=== PATIENT | female | born 1975 | race Caucasian/White ===

== ENCOUNTER 2019-02-22 00:35 | Emergency (ER) | payer MEDICAID, SELFPAY | END 2019-02-22 03:46 | disposition home or self-care (01) | PROVIDERS: Emergency Provider Physician Assistant; Family Provider Family Medicine; Visit Provider Physician Assistant | DX: M54.12 Radiculopathy, cervical region (principal); Z88.0 Allergy status to penicillin | CPT/HCPCS: 96372; 99284; J2270; J2405 ==

== ENCOUNTER 2019-03-03 06:00 | Outpatient (RCR) | payer MEDICAID, SELFPAY | END 2019-03-27 23:59 | disposition home or self-care (01) | LOC: MPT 06:00 | PROVIDERS: Family Provider Family Medicine; PCP Family Medicine; Referring Provider Family Medicine; Visit Provider Family Medicine | DX: G89.29 Other chronic pain (principal); M54.2 Cervicalgia | CPT/HCPCS: 97110; 97140; 97161; 97530 ==

== ENCOUNTER → 2019-03-16 13:49 | Outpatient (BNVA) | payer MEDICAID, SELFPAY | PROVIDERS: Family Provider Family Medicine; PCP Family Medicine; Visit Provider Specialist | DX: G40.909 Epilepsy, unspecified, not intractable, without status epilepticus (principal); G43.711 Chronic migraine without aura, intractable, with status migrainosus; M54.5 Low back pain | CPT/HCPCS: 64615; 99213; J0585 ==

== ENCOUNTER 2019-03-19 09:17 | Outpatient (CLI) | payer MEDICAID, SELFPAY ==
--- NOTE | 2019-03-19 09:30 | MR_ITS ---
WS: [id number] MRI CERVICAL SPINE HISTORY: Neck pain, arm pain, numbness, weakness and tingling COMPARISON: Cervical spine CT 09/05/2017 Straightening and slight reversal the normal cervical lordosis centered at C5-6. Signal within the cervical cord is normal. Visualized posterior fossa is unremarkable. Craniocervical junction, C1 and C2 relationship, odontoid process and soft tissues are normal. Congen itally, mild, small thecal sac from C3-4 to C6-7. C2-C3: Normal. C3-C4: Small vertebral body osteophytes extend into the foramen and mild annular disc bulging. No sig nificant stenosis but there is narrowing of the central canal which is probably congenital. C4-C5: Diffuse osteophytic ridging and annular disc bulging. Disc osteophyte disease contributing to mild central and LEFT foraminal stenosis. More moderate stenosis at the RIGHT foramen. C5-C6: Marked osteophytic ridging and disc bulging. Central and LEFT paracentral disc protrusions are suspected. Disc osteophyte complexes and the foramen. Complete effacement of CSF. Severe central and bilateral foraminal stenosis. C6-C7: Osteophytic ridging and annular disc bulging. Moderate-sized disc osteophyte complex in the RI GHT foramen. Near complete effacement of CSF. Posterior displacement of the proximal nerve roots on t he RIGHT. Moderate central and bilateral foraminal stenosis. C7-T1: Normal. Paraspinal soft tissue are normal. MR/MR cervical spin wo con* [id number] IMPRESSION: 1. Osteophyte, disc disease and mild congenitally small thecal sac contribute to multilevel areas of stenosis. 2. Severe central and bilateral foraminal stenosis at C5-6 due to disc osteoph yte disease. 3. Moderate central and bilateral foraminal stenosis at C6-7 due to disc osteo phyte disease. 4. Moderate RIGHT foraminal stenosis at C4-5 due to disc osteophyte disease wi th mild central and LEFT foraminal stenosis. 5. Mild progression of stenosis since the CT of 09/05/2017.
== END 2019-03-19 09:18 | disposition home or self-care (01) ==
LOC: RADSHAW 09:20
PROVIDERS: Family Provider Family Medicine; PCP Family Medicine; Visit Provider Family Medicine
DX: M54.12 Radiculopathy, cervical region (principal); M48.02 Spinal stenosis, cervical region; M54.2 Cervicalgia; R20.0 Anesthesia of skin; M25.78 Osteophyte, vertebrae
CPT/HCPCS: 72141

== ENCOUNTER 2019-03-28 06:00 | Outpatient (RCR) | payer MEDICAID, SELFPAY | END 2019-04-25 23:59 | disposition home or self-care (01) | LOC: MPT 06:00 | PROVIDERS: Family Provider Family Medicine; PCP Family Medicine; Referring Provider Family Medicine; Visit Provider Family Medicine | DX: G89.29 Other chronic pain (principal); M54.2 Cervicalgia | CPT/HCPCS: 97110; 97140; 97530 ==

== ENCOUNTER → 2019-05-11 16:30 | Outpatient (BNVA) | payer MEDICAID, SELFPAY | PROVIDERS: Family Provider Family Medicine; PCP Family Medicine; Visit Provider Family Medicine | DX: R50.9 Fever, unspecified (principal); J20.8 Acute bronchitis due to other specified organisms | CPT/HCPCS: 87400 ==

== ENCOUNTER → 2019-06-18 15:19 | Outpatient (BNVA) | payer MEDICAID, SELFPAY | PROVIDERS: Family Provider Family Medicine; PCP Family Medicine; Visit Provider Specialist | DX: G43.711 Chronic migraine without aura, intractable, with status migrainosus (principal); M48.02 Spinal stenosis, cervical region; G99.2 Myelopathy in diseases classified elsewhere | CPT/HCPCS: 64615; 99213; J0585 ==

== ENCOUNTER → 2019-09-10 14:15 | Outpatient (BNVA) | payer MEDICAID, SELFPAY | PROVIDERS: Family Provider Family Medicine; PCP Family Medicine; Visit Provider Specialist | DX: G43.711 Chronic migraine without aura, intractable, with status migrainosus (principal); F44.5 Conversion disorder with seizures or convulsions | CPT/HCPCS: 64615; 99213; J0585 ==

== ENCOUNTER → 2021-02-07 11:55 | Outpatient (BNVA) | payer MEDICAID, SELFPAY | PROVIDERS: Family Provider Family Medicine; PCP Family Medicine; Visit Provider Family Medicine | DX: Z13.6 Encounter for screening for cardiovascular disorders (principal); R73.03 Prediabetes | CPT/HCPCS: 80053; 80061; 83036 ==

== ENCOUNTER → 2021-06-07 14:05 | Outpatient (BNVA) | payer MEDICAID, SELFPAY | PROVIDERS: Family Provider Family Medicine; PCP Family Medicine; Visit Provider Family Medicine | DX: E78.5 Hyperlipidemia, unspecified (principal); R10.13 Epigastric pain; R73.03 Prediabetes | CPT/HCPCS: 80053; 80061; 83036; 83690; 85025 ==

== ENCOUNTER → 2021-07-10 14:45 | Outpatient (BNVA) | payer MEDICAID, SELFPAY | PROVIDERS: Family Provider Family Medicine; PCP Family Medicine; Referring Provider Family Medicine; Visit Provider Internal Medicine | DX: D50.9 Iron deficiency anemia, unspecified (principal); D64.9 Anemia, unspecified; R10.13 Epigastric pain; K90.0 Celiac disease; R73.03 Prediabetes; F44.5 Conversion disorder with seizures or convulsions; M54.12 Radiculopathy, cervical region; G43.711 Chronic migraine without aura, intractable, with status migrainosus; M50.020 Cervical disc disorder with myelopathy, mid-cervical region, unspecified level; M48.02 Spinal stenosis, cervical region | CPT/HCPCS: 82607; 83550; 84443; 85025 ==

== ENCOUNTER → 2021-08-09 10:52 | Day surgery (SDC) | payer MEDICAID, SELFPAY ==
[2021-08-09 11:12] VITALS: BP 119/73; PULSE 73; RESP 18; TEMP 36.4; O2SAT 98
[2021-08-09] MEDS: iron sucrose 200 MG in sodium chloride 0.9% (100 ml) 100 ML 220 MG IV (11:20)
== END ==
PROVIDERS: PCP Family Medicine; Visit Provider Internal Medicine
DX: K92.1 Melena (principal)
CPT/HCPCS: 96365; J1756

== ENCOUNTER 2021-08-14 06:33 | Day surgery (SDC) | payer MEDICAID, SELFPAY ==
[2021-08-11 12:55] VITALS: BMI 40.5
[2021-08-14 07:08] VITALS: BP 123/80; PULSE 99; RESP 18; TEMP 36.6; O2SAT 96
[2021-08-14] MEDS: sodium chloride 0.9% 1,000 ML 30 ML IV (07:32)
[2021-08-14 07:35] LABS: OR HCG Qualitative Urine Negative (Negative)
[2021-08-14] MEDS: ondansetron 2 mg/ML SDV 2 mL 4 MG IVP (07:46)
--- NOTE | 2021-08-14 07:49 | ANES.PREANE2 ---
Pre-Anesthetic Assessment Height/Weight: Height 1.64 m Weight 108.862 kg Temp Pulse Resp BP Pulse Ox 98 F 99 18 123/80 96 08/14/21 07:08 08/14/21 07:08 08/14/21 07:08 08/14/21 07:08 08/14/21 07:08 Preop Diagnosis: Fe def anemia and hematochezia Operation Date: 08/14/21 11:00 Proposed Procedures p EGD and colonoscopy [id number],K92.1(Not Applicable) - Giovanni Coburn MD s Colonoscopy(Not Applicable) - Giovanni Coburn MD Familial anesthetic complications: No family hx of complications, per patient she once had a high spinal during c section Was Beta Adam taken within 24 hours: N/A Was Clonidine taken within 24 hours: N/A Last intake: Intake Last Liquid Date 08/13/21 Last Liquid Time 21:30 Last Solid Date 08/12/21 Last Solid Time 18:00 Social No alcohol and No tobacco Exam alert, oriented x 3, clear to auscultation bilaterally and regular rate & rhythm Airway Submandibular: within normal limits Cervical ROM: within normal limits Mallampati: Class II Dentition: full Pulmonary Exertional Dyspnea Patient has sensation of anterior neck pressure/choking when lying flat on back. Able to breath on back flat, but feels a choking sensation. Falls asleep on side, awakes on back without SOB/difficulty breathing but will roll back to side due to sensation of choking. Has never chocked in supine position. Denies hx of thyroid goiter/neck mass. Examination of neck reveals normal trachea alignment and absence of abnormalities in soft tissue and thyroid gland. Denies RENETTA CV/HEM Anemia JUAREZ, will have chest pain on occasion w/ exertion, denies hx of CAD. 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 We discussed spectrum of MAC anesthesia including conversion to general as well as possibility of recall of intraoperative stimuli including discomfort/pain. Patient agrees to proceed with MAC. Patient request to be sat up prior to emergence from anesthesia due to discomfort when lying on back Risk of > 500 ml blood loss (7ml/kg in children): No Medications/Allergies Home Medications Medication Instructions Recorded Confirmed Last Taken Type pantoprazole 40 mg tablet,delayed 40 mg PO BID 30 Days #60 tab 06/07/21 08/11/21 08/08/21 Rx release sucralfate 1 gram tablet (Carafate) 1 g PO BID 30 Days #60 tab 06/07/21 08/11/21 08/08/21 Rx Allergies Allergy/AdvReac Type Severity Reaction Status Date / Time palm oil Allergy Mild blisters Verified 08/09/21 10:48 Penicillins Allergy Mild rash Verified 08/09/21 10:48 cashew nut AdvReac Mild blisters Verified 08/09/21 10:48 in mouth nut - unspecified AdvReac Mild blisters Verified 08/09/21 10:48 in mouth Current Medications Generic Name Dose Route Start Last Admin Trade Name Freq PRN Reason Stop Dose Admin Sodium Chloride 1,000 mls @ 30 mls/hr 08/14/21 07:00 08/14/21 07:32 Sodium Chloride 0.9% IV 30 mls/hr .Q24H RHONDA Administration Ondansetron HCl 4 mg 08/14/21 06:48 08/14/21 07:46 Ondansetron 2 Mg/Ml Sdv 2 Ml IVP 4 mg Q15M PRN Administration Nausea/Vomiting PACU PHASE II [facility] Anesthesia Medical History Cervical disc disorder with myelopathy of mid-cervical region Stenosis of cervical spine with myelopathy Surgical History History of 3 sections History of tonsillectomy and adenoidectomy Family History Family/Other CAD (coronary artery disease) Mother Diabetes Sister Diabetes Social History Smoking and tobacco status: never smoked Alcohol intake: never Household members: children Marital status: Current occupational status: disabled History of recent travel: No Female Reproductive History Spontaneous abortions: No Data Anesthesia Cardiac Studies: No Data to Display
--- NOTE | 2021-08-14 08:07 | P.HP_ITS ---
Same Day Surgery H&P Indication for Procedure/HPI DATE OF PROCEDURE: August 14, 2021 CHIEF COMPLAINT/INDICATIONFOR SURGICAL PROCEDURE: Iron deficiency anemia PREOP DIAGNOSIS: Fe def anemia and hematochezia PLANNED PROCEDURE: Operation Date: 08/14/21 11:00 Proposed Procedures p EGD and colonoscopy [id number],K92.1(Not Applicable) - Giovanni Coburn MD s Colonoscopy(Not Applicable) - Giovanni Coburn MD Medications/Allergies* Allergies/Adverse Reactions Allergy/AdvReac Type Severity Reaction Status Date / Time palm oil Allergy Mild blisters Verified 08/09/21 10:48 Penicillins Allergy Mild rash Verified 08/09/21 10:48 cashew nut AdvReac Mild blisters Verified 08/09/21 10:48 in mouth nut - unspecified AdvReac Mild blisters Verified 08/09/21 10:48 in mouth Current Medications: Generic Name Dose Route Start Last Admin Trade Name Freq PRN Reason Stop Dose Admin Sodium Chloride 1,000 mls @ 30 mls/hr 08/14/21 07:00 08/14/21 07:32 Sodium Chloride 0.9% IV 30 mls/hr .Q24H RHONDA Administration Ondansetron HCl 4 mg 08/14/21 06:48 08/14/21 07:46 Ondansetron 2 Mg/Ml Sdv 2 Ml IVP 4 mg Q15M PRN Administration Nausea/Vomiting PACU PHASE II Pertinent History/Comorbid Conditions* Medical History (Updated 07/27/21 @ 15:47 by Giovanni Coburn MD) Cervical disc disorder with myelopathy of mid-cervical region Stenosis of cervical spine with myelopathy Surgical History (Updated 04/27/19 @ 13:02 by Shyla Lawson MD) History of 3 sections History of tonsillectomy and adenoidectomy Family History (Updated 04/23/19 @ 09:16 by Nata France LPN) Diabetes Mother Sister CAD (coronary artery disease) Family/Other Social History Smoking and tobacco status: never smoked Alcohol intake: never Household members: children Marital status: Current occupational status: disabled History of recent travel: No Pertinent Exam Findings alert, oriented x 3, clear to auscultation bilaterally, regular rate & rhythm, operative site marked and procedure specific exam findings Recommendations Surgery/Procedure today Coding Level of Care Code Acute Rotary Cutter Feeder for Chg Heraclio
[2021-08-14 09:13] VITALS: BP 121/65; PULSE 75; RESP 18; TEMP 36.1; O2SAT 95
--- NOTE | 2021-08-14 09:16 | ANE.PACU2 ---
Documented by User: Tim Rivera CRNA 08/14/21 09:17 Inpatient post-anesthesia follow up: Airway intact: Yes Vital signs: Temperature 98 F Pulse Rate 99 Respiratory Rate 18 Blood Pressure 123/80 Pulse Oximetry 96 Oxygen Delivery Me thod Room Air Oxygen Flow Rate Fraction of Inspir ed Oxygen Hydration adequate: Yes Nausea and vomiting: No Pain level: 1 Mental status: Baseline
[2021-08-14 09:23] VITALS: BP 124/76; PULSE 81; RESP 18; O2SAT 96
== END 2021-08-14 10:02 | disposition home or self-care (01) ==
PROVIDERS: Anesthesiology; PCP Family Medicine; Visit Provider Internal Medicine
PROC: 0DJ08ZZ Inspection of Upper Intestinal Tract, Via Natural or Artificial Opening Endoscopic (ICD-10-PCS; CPT 43235; principal; 2021-08-14 11:00)
PROC: 0DJD8ZZ Inspection of Lower Intestinal Tract, Via Natural or Artificial Opening Endoscopic (ICD-10-PCS; CPT 45378; 2021-08-14 11:00)
DX: K92.1 Melena (principal); K21.9 Gastro-esophageal reflux disease without esophagitis; Z87.11 Personal history of peptic ulcer disease; E66.01 Morbid (severe) obesity due to excess calories; Z68.41 Body mass index [BMI] 40.0-44.9, adult
CPT/HCPCS: 43239; 45378; 84703; 88305; J2405; J2704; J7030

== ENCOUNTER → 2021-08-16 11:24 | Day surgery (SDC) | payer MEDICAID, SELFPAY ==
[2021-08-16] MEDS: iron sucrose 200 MG in sodium chloride 0.9% (100 ml) 100 ML 220 MG IV (11:42)
[2021-08-16 11:48] VITALS: BP 102/64; PULSE 78; RESP 18; TEMP 36.6; O2SAT 96
== END ==
PROVIDERS: PCP Family Medicine; Visit Provider Internal Medicine
DX: M54.2 Cervicalgia (principal); G89.29 Other chronic pain
CPT/HCPCS: 96365; J1756

== ENCOUNTER → 2021-08-23 11:04 | Day surgery (SDC) | payer MEDICAID, SELFPAY ==
[2021-08-23] MEDS: iron sucrose 200 MG in sodium chloride 0.9% (100 ml) 100 ML 220 MG IV (11:29)
[2021-08-23 11:35] VITALS: BP 141/61; PULSE 78; RESP 18; TEMP 36.4; O2SAT 99
== END ==
PROVIDERS: PCP Family Medicine; Visit Provider Internal Medicine
DX: K92.1 Melena (principal)
CPT/HCPCS: 96365; J1756

== ENCOUNTER → 2021-08-30 11:36 | Day surgery (SDC) | payer MEDICAID, SELFPAY ==
[2021-08-30] MEDS: iron sucrose 200 MG in sodium chloride 0.9% (100 ml) 100 ML 220 MG IV (11:57)
[2021-08-30 11:58] VITALS: BP 130/68; PULSE 83; RESP 18; TEMP 35.7; O2SAT 98
== END ==
PROVIDERS: PCP Family Medicine; Visit Provider Internal Medicine
DX: K92.1 Melena (principal)
CPT/HCPCS: 96365; J1756

== ENCOUNTER → 2021-09-06 11:17 | Day surgery (SDC) | payer MEDICAID, SELFPAY ==
[2021-09-06 11:31] VITALS: BP 116/59; PULSE 67; RESP 18; TEMP 36; O2SAT 98
[2021-09-06] MEDS: iron sucrose 200 MG in sodium chloride 0.9% (100 ml) 100 ML 220 MG IV (11:43)
== END ==
PROVIDERS: PCP Family Medicine; Visit Provider Internal Medicine
DX: K92.1 Melena (principal)
CPT/HCPCS: 96365; J1756

== ENCOUNTER 2021-11-01 15:11 | Outpatient (CLI) | payer MEDICAID, SELFPAY ==
[2021-11-01 16:22] LABS: Basophils # 0.1 10^3/uL (0.0-0.1); Basophils % 0.7 %; Eosinophils # 0.2 10^3/uL (0.0-0.8); Eosinophils % 2.1 %; Hematocrit 42.3 % (37.0-47.0); Hemoglobin 13.1 g/dL (11.5-15.3); Lymphocytes % 23.7 %; Mean Corpuscular Hemoglobin 25.4 pg (28.0-34.0); Mean Platelet Volume 9.2 fL (7.4-10.4); Monocytes # 0.8 10^3/uL (0.2-0.9); Monocytes % 9.4 %; Neutrophils # 5.24 10^3/uL (1.8-7.7); Neutrophils % 63.7 %; Nucleated Red Blood Cells % 0 %; Platelet Count 383 10^3/cmm (130-400); Red Blood Count 5.16 10^6/uL (4.1-5.3); Red Cell Distribution Width 18.6 % (12.1-15.1); White Blood Count 8.2 10^3/uL (4.0-10.0)
[2021-11-01 16:56] LABS: Iron 57 ug/dL (37-145); Percent Saturation 16.8 % (20-50); Total Iron Binding Capacity 338 mcg/dl; Unsaturated Iron Binding 281 ug/dL (112-347)
[2021-11-03 15:42] LABS: Immunoglobulin A 570 mg/dL (47-310)
[2021-11-04 06:27] LABS: Gliadin Ab.IgA <1.0 U/mL; Gliadin Ab.IgG <1.0 U/mL
[2021-11-04 06:42] LABS: Tissue Transglutaminase IgA Ab <1.0 U/mL; Tissue transglutaminase Ab.IgG <1.0 U/mL
== END 2021-11-01 15:12 | disposition home or self-care (01) ==
LOC: LAB 15:13
PROVIDERS: PCP Family Medicine; Visit Provider Internal Medicine
DX: D50.9 Iron deficiency anemia, unspecified (principal)
CPT/HCPCS: 82784; 83516; 83540; 83550; 85025

== ENCOUNTER → 2022-03-01 10:48 | Outpatient (BNVA) | payer MEDICAID, SELFPAY | PROVIDERS: PCP Family Medicine; Visit Provider Family Medicine | DX: E11.9 Type 2 diabetes mellitus without complications (principal); E78.00 Pure hypercholesterolemia, unspecified; D50.9 Iron deficiency anemia, unspecified; N92.4 Excessive bleeding in the premenopausal period; K90.0 Celiac disease; Z68.38 Body mass index [BMI] 38.0-38.9, adult | CPT/HCPCS: 80053; 80061; 83036; 85025 ==

== ENCOUNTER → 2022-08-22 15:00 | Outpatient (BNVA) | payer MEDICAID, SELFPAY | PROVIDERS: PCP Family Medicine; Visit Provider Family Medicine | DX: E11.9 Type 2 diabetes mellitus without complications (principal); E78.00 Pure hypercholesterolemia, unspecified; D50.9 Iron deficiency anemia, unspecified | CPT/HCPCS: 80053; 80061; 83036; 83540; 85025 ==

== ENCOUNTER 2022-10-29 06:22 | Emergency (ER) | payer MEDICAID, SELFPAY ==
[2022-10-29 06:38] VITALS: BP 148/69; PULSE 74; RESP 18; TEMP 36.7; O2SAT 98; BMI 37.5
[2022-10-29] MEDS: orphenadrine 30 mg/mL Inj 2 mL 60 MG IVP (07:02)
[2022-10-29] MEDS: dexamethasone 10 mg/mL INJ IVP (07:02)
[2022-10-29] MEDS: ketorolac 30 mg/mL INJ IVP (07:02)
--- NOTE | 2022-10-29 07:03 | W.ED.BACK ---
HPI - Back Pain/Injury General: Chief Complaint: Back Pain/Injury Stated Complaint: low back pain Time Seen by Provider: 10/29/22 06:30 Source: patient Mode of arrival: wheelchair Limitations: no limitations History of Present Illness: Patient is a 46-year-old female presents to ED today with a complaint of right lower back pain that she noticed when she awoke from sleep Saturday morning. She initially thought she may have slept wrong on the back. She states pain seems to radiate around and affects the anterior portion of her right upper thigh. She feels like pain is worse with movement and certain positions. She states she has been treating with heat at home which has been helping. No known injury or trauma. Denies previous back pain. She denies saddle anesthesia or bowel or bladder dysfunction. She is not having any urinary symptoms at this time. No flank pain. No history of nephro/ureterolithiasis. She is also reporting some dizziness. She reports a history of chronic anemia secondary to heavy menstrual cycles. She reports dizziness is fairly chronic for her with her anemia. Sshe states she just started her menstrual cycle yesterday. MD elicited complaint: back pain Onset (ago): day(s) Timing: constant Severity: moderate Similar Symptoms Previously: No Location: right lower back Radiation: right upper leg Exacerbating factors: movement and walking Relieving factors: immobilization and other (heat) Context: unknown Associated symptoms: Reports no associated symptoms; Deny abdominal pain, chills, difficulty walking, dysuria, fatigue, fever(s), nausea, syncope, urinary urgency or vomiting Treatments prior to arrival: heat therapy Work related injury: No Review of Systems Const: Denies: fever(s), chills, body aches, fatigue or malaise Eyes: Denies: change in vision, blurry vision, photophobia, floaters or seeing flashes Card: Denies: chest pain, palpitations, irregular heart rhythm, edema, lightheadedness, syncope or dyspnea on exertion Resp: Denies: dyspnea, productive cough, wheezing, pain on inspiration or hemoptysis GI: Denies: abdominal pain, nausea, vomiting, heartburn or diarrhea : Denies: flank pain, difficulty voiding, dysuria, urinary frequency, urinary urgency or urinary hesitancy Musc: Reports: back pain; Denies: neck pain, extremity pain, extremity swelling, joint pain or joint swelling Skin/Breast: Denies: rash Neuro: Reports: dizziness; Denies: headache(s), numbness in extremities, weakness in extremities, sensory changes, difficulty walking or frequent falls PFSH ED PFSH: Medical History Cervical disc disorder with myelopathy of mid-cervical region Stenosis of cervical spine with myelopathy Surgical History History of 3 sections History of tonsillectomy and adenoidectomy Family History Family/Other CAD (coronary artery disease) Mother Diabetes Sister Diabetes Social History Smoking and tobacco status: never smoked Alcohol intake: never Substance/Drug Use: never Household members: children Marital status: Current occupational status: disabled Female Reproductive History: Spontaneous abortions: No Physical Exam Const: COMMON NORMALS: no acute distress, patient oriented x3, no limitations, alert and well nourished GENERAL APPEARANCE: cooperative NUTRITIONAL APPEARANCE: obese ORIENTATION/CONSCIOUSNESS: Yes awake, Yes oriented to person, Yes oriented to place and Yes oriented to time Resp: COMMON NORMALS: normal respiratory effort and clear to auscultation bilaterally AUSCULTATION: clear to auscultation bilaterally Cardio: COMMON NORMALS: regular rate and regular rhythm RATE: regular rate RHYTHM: regular rhythm GI: COMMON NORMALS: Normal to inspection, nondistended, normoactive bowel sounds present, Soft to palpation, non-tender, No hepatosplenomegaly present and no masses INSPECTION: Yes normal to inspection PALPATION: Yes Soft to palpation and Yes No hepatosplenomegaly present : COMMON NORMALS: Yes no CVA tenderness BLADDER/KIDNEY EXAM: Yes no CVA tenderness Back/Pelvis: COMMON NORMALS: no CVA tenderness, thoracic and lumbar spine normal to inspection, no thoracic nor lumbar tenderness and thoraco-lumbar ROM normal THORACIC SPINE/UPPER BACK: Yes normal to inspection, No thoracic spinal tenderness, No paraspinal muscle tenderness and No paraspinal muscle spasm LUMBAR SPINE/LOWER BACK: No lumbar spinal tenderness, Yes paraspinal muscle tenderness, No paraspinal muscle spasm and Yes straight leg raise negative bilaterally PELVIS: Yes buttocks normal and Yes sciatic notch tenderness SACROILIAC JOINTS: Yes SI joints normal SACRUM: no tenderness COCCYX: no tenderness BACK IMAGE (FEMALE): 1. TTP Extremity: COMMON NORMALS: normal to inspection and full ROM GENERAL: Yes normal exam except as noted Neuro: SORAYA COMA SCALE: document [facility] findings [place] coma scale eye opening: Spontaneous Soraya coma scale verbal response: Orientated Soraya coma scale motor response: Obey commands [place] coma scale total score: 15 COMMON NORMALS: patient oriented x3, CN's II-XII intact bilaterally, moves all extremities, no focal motor deficits, no sensory deficits noted, deep tendon reflexes 2+ bilaterally and gait normal SENSORIUM/ORIENTATION: Yes alert, Yes oriented to person, Yes oriented to place and Yes oriented to time MOTOR EXAM: 5/5 motor strength present throughout Skin: COMMON NORMALS: no rashes or lesions noted GENERAL SKIN EXAM: no rashes or lesions noted Course Vital Signs: Vital signs: Vital Signs Temperature 98.0 F 10/29/22 06:38 Pulse Rate 74 10/29/22 07:17 Respiratory Rate 18 10/29/22 07:17 Blood Pressure 123/73 10/29/22 07:17 Pulse Oximetry 96 10/29/22 07:17 Oxygen Delivery Me thod Room Air 10/29/22 07:17 MDM - Back Pain/Injury Medical Decision Making Patient with no acute neurologic deficits. Blood work overall is unremarkable. UA showing hematuria which most likely is contamination due to current menstrual cycle. Based on history and physical exam I have a low suspicion for ureterolithiasis. Recommend she start taking OTC anti-inflammatories we will place her on steroids and muscle relaxers. Recommend follow-up with her primary care this week or next if symptoms do not seem to be improving. Return to ED precautions given. Labs 10/29/22 07:09 10/29/22 07:09 Laboratory Results WBC 11.58 10^3/uL (3.29-11.43) H 10/29/22 07:09 RBC 5.50 10^6/uL (3.85-5.65) 10/29/22 07:09 Hgb 13.70 g/dL (11.27-16.99) 10/29/22 07:09 Hct 43.5 % (36-47) 10/29/22 07:09 MCV 79.1 fl (85-98) L 10/29/22 07:09 MCH 24.9 pg (27-33) L 10/29/22 07:09 MCHC 31.5 g/dL (30-55) 10/29/22 07:09 RDW 17.1 % (12.1-15.1) H 10/29/22 07:09 Plt Count 407 10^3/cmm (157-399) H 10/29/22 07:09 MPV 9.3 fL (7.4-10.4) 10/29/22 07:09 Neut % (Auto) 77.3 % 10/29/22 07:09 Lymph % (Auto) 13.9 % 10/29/22 07:09 [place] % (Auto) 6.2 % 10/29/22 07:09 Eos % (Auto) 1.5 % 10/29/22 07:09 Baso % (Auto) 0.6 % 10/29/22 07:09 Neut # (Auto) 8.95 10^3/uL (1.8-7.7) H 10/29/22 07:09 Lymph # (Auto) 1.6 10^3/uL (0.8-4.8) 10/29/22 07:09 [place] # (Auto) 0.7 10^3/uL (0.2-0.9) 10/29/22 07:09 Eos # (Auto) 0.2 10^3/uL (0.0-0.8) 10/29/22 07:09 Baso # (Auto) 0.1 10^3/uL (0.0-0.1) 10/29/22 07:09 Nucleated RBC % (auto) 0 % 10/29/22 07:09 Nucleated RBCs # 0.0 /100WBC 10/29/22 07:09 Sodium 139 mmol/L (136-145) 10/29/22 07:09 Potassium 3.9 mmol/L (3.5-5.1) 10/29/22 07:09 Chloride 103 mmol/L (98-107) 10/29/22 07:09 Carbon Dioxide 24 mmol/L (22-29) 10/29/22 07:09 Anion Gap 15.9 (5-19) 10/29/22 07:09 BUN 22 mg/dL (6-20) H 10/29/22 07:09 Creatinine 0.8 mg/dL (0.5-0.9) 10/29/22 07:09 GFR Calculation 76.9 mL/min (90-130) L 10/29/22 07:09 Glucose 162 mg/dL (65-115) H 10/29/22 07:09 Calculated Osmolality 295 mOsm/kg (285-295) 10/29/22 07:09 Calcium 9.1 mg/dL (8.5-10.5) 10/29/22 07:09 Total Bilirubin 0.3 mg/dL (0.15-1.2) 10/29/22 07:09 AST 13 U/L (0-32) 10/29/22 07:09 ALT 14 U/L (0-33) 10/29/22 07:09 Alkaline Phosphatase 60 U/L (35-105) 10/29/22 07:09 Total Protein 7.8 g/dL (6.6-8.7) 10/29/22 07:09 Albumin 4.2 g/dL (3.5-5.2) 10/29/22 07:09 Globulin 3.6 g/dL (1.3-4.6) 10/29/22 07:09 HCG, Qual Negative (Negative) 10/29/22 07:09 Urine Color Yellow (Yellow) 10/29/22 09:05 Urine Appearance Sl hazy (CLEAR) A 10/29/22 09:05 Urine pH 5 (5-7) 10/29/22 09:05 Ur Specific [place] 1.020 (1.005-1.030) 10/29/22 09:05 Urine Protein Neg (Negative) 10/29/22 09:05 Urine Glucose (UA) Norm (Normal) 10/29/22 09:05 Urine Ketones 1+ (Negative) H 10/29/22 09:05 Urine Blood 3+ (Negative) H 10/29/22 09:05 Urine Nitrate Negative (Negative) 10/29/22 09:05 Urine Bilirubin Neg (Negative) 10/29/22 09:05 Urine Urobilinogen Norm mg/dL (Negative) 10/29/22 09:05 Ur Leukocyte Esterase Negative (Negative) 10/29/22 09:05 Urine RBC 0-4 /hpf (0-2) H 10/29/22 09:05 Urine WBC Rare /hpf (0-5) 10/29/22 09:05 Ur Squamous Epith Cells Rare /hpf (0-5) 10/29/22 09:05 Amorphous Sediment Not Reportable 10/29/22 09:05 Urine Bacteria Trace /hpf (NONE) 10/29/22 09:05 Discharge Plan Discharge Patient Disposition: Home Clinical Impression: Lumbar radiculopathy Condition: Stable Prescriptions: New cyclobenzaprine 10 mg tablet 10 mg PO TID Qty: 14 0RF Medrol (Chente) 4 mg tablets,dose pack See Rx Instructions .ROUTE .COMPLEX Qty: 21 0RF Rx Instructions: orally per package directions No Action (DME) Blood Glucose Test Strip See Rx Instructions .ROUTE .MEDSUPPLY Qty: 50 11RF Rx Instructions: To test blood sugar once daily (DME) blood-glucose meter [Blood Glucose Monitoring] Kit See Rx Instructions .ROUTE .MEDSUPPLY Qty: 1 0RF Rx Instructions: To test blood sugar once daily (DME) lancets Misc See Rx Instructions .ROUTE .MEDSUPPLY Qty: 100 11RF Rx Instructions: To test blood sugar once daily Goody's Extra Strength 500-325-65 mg Powder In Packet 1 ea PO TID PRN (Reason: Pain) Discharge Orders: Discharge ED (Routine); Ordered 10/29/22 Ordered By: Lala Oakley Referrals: Shyla Lawson MD [Primary Care Provider] - Activity Restrictions/Additional Instructions: As we discussed please follow-up with your primary care provider this week or next if symptoms do not seem to be improving. You may return to the emergency department for worsening or uncontrollable back pain, fevers, repetitive episodes of vomiting, severe flank pain, burning with urination or odorous urine, inability to urinate/defecate or begin to experience incontinence of bowel or bladder, or any other concerns you may have. Coding Level of Care Code ED Frame Carver Spindle for Onelia Pulliam
[2022-10-29 07:17] VITALS: BP 123/73; PULSE 74; RESP 18; O2SAT 96
[2022-10-29 07:33] LABS: Basophils # 0.1 10^3/uL (0.0-0.1); Basophils % 0.6 %; Eosinophils # 0.2 10^3/uL (0.0-0.8); Eosinophils % 1.5 %; Hematocrit 43.5 % (36-47); Lymphocytes # 1.6 10^3/uL (0.8-4.8); Lymphocytes % 13.9 %; Mean Corpuscular HGB Conc 31.5 g/dL (30-55); Mean Corpuscular Hemoglobin 24.9 pg (27-33); Mean Corpuscular Volume 79.1 fl (85-98); Mean Platelet Volume 9.3 fL (7.4-10.4); Monocytes # 0.7 10^3/uL (0.2-0.9); Monocytes % 6.2 %; Neutrophils # 8.95 10^3/uL (1.8-7.7); Neutrophils % 77.3 %; Nucleated Red Blood Cells % 0 %; Platelet Count 407 10^3/cmm (157-399); Red Cell Distribution Width 17.1 % (12.1-15.1); White Blood Count 11.58 10^3/uL (3.29-11.43)
[2022-10-29] MEDS: sodium chloride 0.9% 1,000 ML 999 ML IV (07:42)
[2022-10-29 08:00] VITALS: PULSE 73; RESP 18; O2SAT 99
[2022-10-29 08:07] LABS: Alanine Aminotransferase 14 U/L (0-33); Albumin Level 4.2 g/dL (3.5-5.2); Alkaline Phosphatase 60 U/L (35-105); Anion Gap 15.9 (5-19); Aspartate Amino Transferase 13 U/L (0-32); Blood Urea Nitrogen 22 mg/dL (6-20); Calcium 9.1 mg/dL (8.5-10.5); Carbon Dioxide 24 mmol/L (22-29); Chloride 103 mmol/L (98-107); Globulin 3.6 g/dL (1.3-4.6); Glomerular Filtration Rate 76.9 mL/min (90-130); Glucose 162 mg/dL (65-115); Osmolality Calculated 295 mOsm/kg (285-295); Potassium 3.9 mmol/L (3.5-5.1); Sodium 139 mmol/L (136-145); Total Bilirubin 0.3 mg/dL (0.15-1.2); Total Protein 7.8 g/dL (6.6-8.7)
[2022-10-29 08:10] LABS: HCG, Serum Qual Negative (Negative)
[2022-10-29 09:00] VITALS: BP 95/64; PULSE 65; RESP 12; O2SAT 98
[2022-10-29 09:27] LABS: Glucose Urine UA Norm (Normal); Ketones Urine 1+ (Negative); Protein Urine Neg (Negative); Urine Appearance SL Hazy (CLEAR); Urine Color Yellow (Yellow); pH Urine 5 (5-7)
[2022-10-29 09:28] LABS: Add Urine Culture? No; Add Urine Microscopic? YES; Bacteria Urine TRACE /hpf; Bilirubin Urine Neg (Negative); Blood Urine 3+ (Negative); Leukocyte Esterase Urine Negative (Negative); Nitrate Urine Negative (Negative); RBC Urine 0-4 /hpf (0-2); Squamous Epithelial Cell Urine RARE /hpf (0-5); Urobilinogen Urine Norm (Negative); WBC Urine RARE /hpf (0-5)
[2022-10-29 10:00] VITALS: BP 100/67; PULSE 67; RESP 13; O2SAT 94
[2022-10-29 10:27] VITALS: BP 109/69; PULSE 68; RESP 17; O2SAT 97
== END 2022-10-29 10:28 | disposition home or self-care (01) ==
PROVIDERS: Emergency Provider Physician Assistant; PCP Family Medicine
DX: M54.16 Radiculopathy, lumbar region (principal)
CPT/HCPCS: 80053; 81001; 84703; 85025; 96374; 96375; 99284; J1100; J1885; J2360; J7030

== ENCOUNTER → 2023-02-04 11:19 | Outpatient (BNVA) | payer MEDICAID, SELFPAY | PROVIDERS: PCP Family Medicine; Visit Provider Family Medicine | DX: E11.9 Type 2 diabetes mellitus without complications (principal); D50.9 Iron deficiency anemia, unspecified; K90.0 Celiac disease; G43.711 Chronic migraine without aura, intractable, with status migrainosus; M54.42 Lumbago with sciatica, left side; M54.41 Lumbago with sciatica, right side; G89.29 Other chronic pain | CPT/HCPCS: 80048; 83036; 83540 ==

== ENCOUNTER → 2023-08-05 11:00 | Outpatient (BNVA) | payer MEDICAID, SELFPAY | PROVIDERS: PCP Family Medicine; Visit Provider Family Medicine | DX: E11.9 Type 2 diabetes mellitus without complications (principal); M54.42 Lumbago with sciatica, left side; M54.41 Lumbago with sciatica, right side; G89.29 Other chronic pain; E78.00 Pure hypercholesterolemia, unspecified; F44.5 Conversion disorder with seizures or convulsions; Z63.8 Other specified problems related to primary support group; Z68.41 Body mass index [BMI] 40.0-44.9, adult; M79.7 Fibromyalgia | CPT/HCPCS: 80053; 80061; 83036 ==

== ENCOUNTER → 2023-11-06 10:11 | Outpatient (BNVA) | payer MEDICAID, SELFPAY | PROVIDERS: PCP Family Medicine; Visit Provider Family Medicine | DX: E11.9 Type 2 diabetes mellitus without complications (principal) | CPT/HCPCS: 83036 ==

== ENCOUNTER → 2023-12-19 09:42 | Outpatient (BNVA) | payer MEDICAID, SELFPAY | PROVIDERS: PCP Family Medicine; Visit Provider Family Medicine | DX: Z12.4 Encounter for screening for malignant neoplasm of cervix (principal) | CPT/HCPCS: 87624 ==

== ENCOUNTER → 2024-02-04 09:29 | Outpatient (BNVA) | payer MEDICAID, SELFPAY | PROVIDERS: PCP Family Medicine; Visit Provider Family Medicine | DX: E11.9 Type 2 diabetes mellitus without complications (principal) | CPT/HCPCS: 80048; 83540; 85025 ==

== ENCOUNTER → 2024-05-18 09:18 | Outpatient (BNVA) | payer BC, MEDICAID, SELFPAY | PROVIDERS: PCP Family Medicine; Visit Provider Family Medicine | DX: I10 Essential (primary) hypertension (principal); E11.9 Type 2 diabetes mellitus without complications | CPT/HCPCS: 80048; 83036; 83735 ==

== ENCOUNTER → 2024-08-31 09:23 | Outpatient (BNVA) | payer BC, MEDICAID, SELFPAY | PROVIDERS: PCP Family Medicine; Visit Provider Family Medicine | DX: E11.9 Type 2 diabetes mellitus without complications (principal); E78.00 Pure hypercholesterolemia, unspecified | CPT/HCPCS: 80048; 80061; 83036 ==

== ENCOUNTER → 2024-10-23 16:22 | Outpatient (BNVA) | payer BC, MEDICAID, SELFPAY | PROVIDERS: PCP Family Medicine; Visit Provider Family Medicine | DX: M48.02 Spinal stenosis, cervical region (principal); M50.020 Cervical disc disorder with myelopathy, mid-cervical region, unspecified level; M54.42 Lumbago with sciatica, left side; M54.41 Lumbago with sciatica, right side; G89.29 Other chronic pain; G31.89 Other specified degenerative diseases of nervous system; M50.323 Other cervical disc degeneration at C6-C7 level | CPT/HCPCS: 72040; 72100 ==